=== PATIENT | female | born 1945 | race Caucasian/White ===

== ENCOUNTER 2017-01-12 08:21 | Day surgery (SDC) | payer MEDICARE, BC ==
[~2017-01-12 08:21] MED LIST: Cefuroxime 10 MG/ML SYRINGE EYELF SCH; Lidocaine 1% PF 2 ML SDV INJECT SCH; Pilocarpine 4% Ophth Soln 15 ML Bot EYELF SCH
[2017-01-12] MEDS: Ofloxacin 0.3% Ophth Soln 5 ML Bottle EYELF SCH ×3 (09:23→11:11)
[2017-01-12] MEDS: Brimonidine 0.2% Ophth Soln 5 ML Bottle EYELF SCH ×3 (09:28→11:11)
[2017-01-12] MEDS: Phenylephrine 2.5% Ophth Soln 2 ML Bot EYELF SCH ×5 (09:33→10:50)
--- NOTE | 2017-01-12 09:46 | PCM.PREANE ---
Preanesthetic Assessment - Procedure Proposed Procedure: Left eye cataract extraction with IOL - Anesthesia/Transfusion/Family Hx Anesthesia History: Prior Anesthesia Without Reaction Family History of Anesthesia Reaction: No Transfusion History: Prior Transfusion Without Reaction Intubation History: Unknown - Review of Systems General: No Symptoms Pulmonary: No Symptoms (asthma, usesd daily inhaler ), Other Cardiovascular: Other (HTN, HLD) Neurological: No Symptoms Other: Reports: Easy Bruising, Thyroid Problems - Physical Assessment NPO Status Date: 01/11/17 NPO Status Time: 19:00 O2 Sat by Pulse Oximetry: 98 Respiratory Rate: 18 Vital Signs: Last Vital Signs Temp 36.6 C 01/12/17 09:20 Pulse 89 01/12/17 09:20 Resp 18 01/12/17 09:20 BP 209/73 H 01/12/17 09:20 Pulse Ox 98 01/12/17 09:20 Height: 1.6 m Weight: 116.573 kg ASA Class: 3 Mental Status: Alert & Oriented x3 Airway Class: Mallampati = 3 Dentition: Reports: Normal Dentition Thyro-Mental Finger Breadths: 3 Mouth Opening Finger Breadths: 3 ROM/Head Extension: Full Lungs: Clear to auscultation, Normal respiratory effort Cardiovascular: Regular Rate, Regular Rhythm - Allergies Allergies/Adverse Reactions: Allergies Allergy/AdvReac Type Severity Reaction Status Date / Time Sulfa (Sulfonamide Allergy Rash Verified 01/11/17 15:57 Antibiotics) - Blood Blood Available: No - Anesthesia Plan Pre-Op Medication Ordered: None - Acknowledgements Anesthesia Type Planned: MAC Pt an Appropriate Candidate for the Planned Anesthesia: Yes Alternatives and Risks of Anesthesia Discussed w Pt/Guardian: Yes Pt/Guardian Understands and Agrees with Anesthesia Plan: Yes PreAnesthesia Questionnaire HEENT History: Reports: Impaired Vision Cardiovascular History: Reports: High Cholesterol, Hypertension Respiratory History: Reports: Asthma, Sleep Apnea Gastrointestinal History: Reports: GERD, Other (See Below) Other Gastrointestinal History: gluten intolerance which leads to occasional diarrhea Genitourinary History: Reports: Other (See Below) Other Genitourinary History: occasional UTI 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: Endocrine/Metabolic History: Reports: Hypothyroidism Other Endocrine/Metabolic History: BMI 45 - Infectious Disease History Infectious Disease History: Reports: Chicken Pox, Measles, Mumps - Past Surgical History HEENT Surgical History: Reports: Tonsillectomy, Other (See Below) GI Surgical History: Reports: Appendectomy, Other (See Below) Musculoskeletal Surgical History: Reports: Knee Replacement - SUBSTANCE USE Smoking Status *Q: Never Smoker Second Hand Smoke Exposure: No Days Per Week of Alcohol Use: 0 Number of Drinks Per Day: 0 Total Drinks Per Week: 0 Recreational Drug Use History: No - HOME MEDS Home Medications: Home Meds Budesonide/Formoterol [Symbicort 160-4.5 MCG] 2 puff INH BEDTIME 01/01/15 [ History] Fluticasone Propionate [Flonase] 1 spray GIANLUCA DAILY 01/01/15 [History] Levothyroxine [Synthroid] 50 mcg PO DAILY 01/01/15 [History] Meloxicam 15 mg PO DAILY 01/01/15 [History] Omeprazole [Prilosec] 40 mg PO DAILY 01/01/15 [History] Pravastatin [Pravachol] 20 mg PO BEDTIME 01/01/15 [History] Triamterene/Hydrochlorothiazid [Triamterene-HCTZ 37.5-25 MG] 1 cap PO DAILY [History] Losartan [Cozaar] 50 mg PO DAILY 01/11/17 [History] - CURRENT (IN HOUSE) MEDS Current Meds: Current Medications Brimonidine Tartrate (Alphagan 0.2% Ophth Soln) 0 ml EYELF ASDIRECTED ZAHEER Stop: 01/12/17 18:00 Last Admin: 01/12/17 09:28 Dose: 1 drop Cefuroxime Sodium (Zinacef) 0 mg EYELF ASDIRECTED ZAHEER Stop: 01/12/17 18:00 Lidocaine HCl (Xylocaine-Mpf 1%) 10 ml INJECT ASDIRECTED ZAHEER Stop: 01/12/17 18:00 Ofloxacin (Ocuflox 0.3% Ophth Soln) 0 ml EYELF ASDIRECTED ZAHEER Stop: 01/12/17 18:00 Last Admin: 01/12/17 09:23 Dose: 1 drop Phenylephrine HCl (Van-Synephrine 2.5% Ophth Soln) 0 ml EYELF ASDIRECTED ZAHEER Stop: 01/12/17 18:00 Last Admin: 01/12/17 09:33 Dose: 1 drop Pilocarpine HCl (Pilocar 4% Ophth Soln) 0 ml EYELF ASDIRECTED ZAHEER Stop: 01/12/17 18:00 Tetracaine HCl (Tetracaine 0.5% Steri-Unit Dana) 0 ml EYELF ASDIRECTED ZAHEER Stop: 01/12/17 18:00 Tropicamide (Mydriacyl 1% Oph Soln) 0 ml EYELF ASDIRECTED ZAHEER Stop: 01/12/17 18:00 Last Admin: 01/12/17 09:38 Dose: 1 drop
[2017-01-12] MEDS: Tetracaine HCl/PF 0.5% 4 ML Bottle EYELF SCH ×2 (10:36→10:58)
--- NOTE | 2017-01-12 11:20 | PCM48HPAN ---
Post Anesthesia Note - EVALUATION WITHIN 48HRS OF ANESTHETIC Vital Signs in Normal Range: Yes Patient Participated in Evaluation: Yes Respiratory Function Stable: Yes Airway Patent: Yes Cardiovascular Function Stable: Yes Hydration Status Stable: Yes Pain Control Satisfactory: Yes Nausea and Vomiting Control Satisfactory: Yes Mental Status Recovered: Yes
[2017-01-12 11:32] VITALS: BP 182/83
== END 2017-01-12 11:30 | disposition home or self-care (01) ==
LOC: JD.SDS 08:21
PROVIDERS: ATTEND Ophthalmology
DX: H26.9 Unspecified cataract (principal); I10 Essential (primary) hypertension; J45.909 Unspecified asthma, uncomplicated; E03.9 Hypothyroidism, unspecified; N28.9 Disorder of kidney and ureter, unspecified; Z90.49 Acquired absence of other specified parts of digestive tract; Z90.710 Acquired absence of both cervix and uterus; Z96.659 Presence of unspecified artificial knee joint; Z79.899 Other long term (current) drug therapy
CPT/HCPCS: 66984; A9270; J0697; C1780

== ENCOUNTER 2017-09-11 10:34 | Emergency (ER) | payer MEDICARE, BC ==
[2017-09-11] MEDS ORDERED: Sodium Chloride 0.9% 10 ML Syringe FLUSH PRN ×2 (11:27→12:39)
--- NOTE | 2017-09-11 11:36 | EDM.PDOC ---
ED HPI GENERAL MEDICAL PROBLEM - General Chief Complaint: Respiratory Problem Stated Complaint: SOB Time Seen by Provider: 09/11/17 11:05 Source of Information: Reports: Patient History Limitations: Reports: No Limitations - History of Present Illness INITIAL COMMENTS - FREE TEXT/NARRATIVE: Patient is 71-year-old female with a history of asthma who presents to the ED complaining of shortness of breath for the past 2 weeks. Patient states it has been an ongoing issue. She is taking multiple inhalers for asthma with no significant improvements. As of recent she was seen by her PCP for left-sided abdominal pain and started on 2 antibiotics for diverticulitis. States that symptoms are getting better but the shortness of breath has not improved. States with walking across her room she gets severely short of breath decreased with rest. This is a significant change from previous episodes. She not able to walk as far as she used to. She does get lightheaded at times and feels that she is going to pass out. She does use a CPAP machine at hs and notes occasionally experiencing increasing shortness of breath with laying flat. Denies any increase weight or edema to her lower extremities. States the edema to her legs is chronic. Today she states symptoms are not as bad as yesterday. Has a dry hacky cough and feels dry. Otherwise denies any viral upper respiratory symptoms. She does a history of DVT 40 years ago during . Chest discomfort does not radiate. Current history includes hypertension, hypothyroidism, GERD, asthma, diverticulosis, and chest pain. Current medications see list. Chest Pain Score (Numeric/FACES): 2 - Related Data Allergies Allergy/AdvReac Type Severity Reaction Status Date / Time Sulfa (Sulfonamide Allergy Rash Verified 09/11/17 10:48 Antibiotics) Home Meds: Home Meds Budesonide/Formoterol [Symbicort 160-4.5 MCG] 2 puff INH BEDTIME 01/01/15 [ History] Fluticasone Propionate [Flonase] 1 spray GIANLUCA DAILY 01/01/15 [History] Levothyroxine [Synthroid] 50 mcg PO DAILY 01/01/15 [History] Meloxicam 15 mg PO DAILY 01/01/15 [History] Omeprazole [Prilosec] 40 mg PO DAILY 01/01/15 [History] Pravastatin [Pravachol] 20 mg PO BEDTIME 01/01/15 [History] Triamterene/Hydrochlorothiazid [Triamterene-HCTZ 37.5-25 MG] 1 cap PO DAILY [History] Losartan [Cozaar] 50 mg PO DAILY 01/11/17 [History] Albuterol Sulfate 2.5 mg IH Q4HR PRN 09/11/17 [History] Aspirin [Halfprin] 81 mg PO DAILY 09/11/17 [History] Estrogens, Conjugated [Premarin Vaginal Crm] 1 applic VAG ASDIRECTED PRN [History] Past Medical History HEENT History: Reports: Impaired Vision Cardiovascular History: Reports: High Cholesterol, Hypertension Respiratory History: Reports: Asthma, Sleep Apnea Gastrointestinal History: Reports: GERD, Other (See Below) Other Gastrointestinal History: gluten intolerance which leads to occasional diarrhea Genitourinary History: Reports: Other (See Below) Other 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: Endocrine/Metabolic History: Reports: Hypothyroidism Other Endocrine/Metabolic History: BMI 45 - Infectious Disease History Infectious Disease History: Reports: Chicken Pox, Measles, Mumps - Past Surgical History HEENT Surgical History: Reports: Tonsillectomy, Other (See Below) GI Surgical History: Reports: Appendectomy, Other (See Below) Musculoskeletal Surgical History: Reports: Knee Replacement Social & Family History - Tobacco Use Smoking Status *Q: Unknown Ever Smoked Second Hand Smoke Exposure: No - Caffeine Use Caffeine Use: Reports: Coffee - Alcohol Use Days Per Week of Alcohol Use: 0 Number of Drinks Per Day: 0 Total Drinks Per Week: 0 - Recreational Drug Use Recreational Drug Use: No Drug Use in Last 12 Months: No ED ROS GENERAL - Review of Systems Review Of Systems: See Below Constitutional: Reports: Malaise, Weakness, Fatigue. Denies: Fever, Chills, Decreased Appetite Respiratory: Reports: Shortness of Breath, Cough. Denies: Hemoptysis Cardiovascular: Reports: Dyspnea on Exertion, Orthopnea. Denies: Lightheadedness GI/Abdominal: Reports: No Symptoms Musculoskeletal: Reports: No Symptoms ED EXAM, GENERAL - Physical Exam Exam: See Below Exam Limited By: No Limitations General Appearance: Alert, WD/WN, Anxious, Mild Distress Ears: Hearing Grossly Normal Nose: Normal Inspection Throat/Mouth: Normal Inspection, Normal Oropharynx, Normal Voice, No Airway Compromise Head: Atraumatic, Normocephalic Neck: Normal Inspection, Supple Respiratory/Chest: No Respiratory Distress, Lungs Clear, Normal Breath Sounds, No Accessory Muscle Use, Chest Non-Tender Cardiovascular: Normal Peripheral Pulses, Regular Rate, Rhythm Peripheral Pulses: 2+: Posterior Tibial (L), Posterior Tibial (R) GI/Abdominal: Normal Bowel Sounds, Soft, Non-Tender, No Organomegaly, No Distention Back Exam: Normal Inspection Extremities: Non-Tender, Pedal Edema (trace to 1+ lower legs bilaterally. ), Other. No: Leg Pain Neurological: Alert, Oriented, CN II-XII Intact, Normal Cognition, No Motor/ Sensory Deficits Psychiatric: Normal Affect, Normal Mood Skin Exam: Warm, Dry, Intact, Normal Color Course - Vital Signs Last Recorded V/S: Last Vital Signs Temp 97.2 F 09/11/17 14:45 Pulse 100 09/11/17 14:45 Resp 19 09/11/17 14:45 BP 159/78 H 09/11/17 14:45 Pulse Ox 94 L 09/11/17 14:45 - Orders/Labs/Meds Labs: Laboratory Tests 09/11/17 09/11/17 09/11/17 Range/Units 11:35 11:35 11:35 WBC 7.08 (3.98-10.04) K/mm3 RBC 4.13 (3.98-5.22) M/mm3 Hgb 13.1 (11.2-15.7) gm/L Hct 40.3 (34.1-44.9) % MCV 97.6 H (79.4-94.8) fl MCH 31.7 (25.6-32.2) pg MCHC 32.5 (32.2-35.5) g/dl RDW Std Deviation 44.3 (36.4-46.3) fL Plt Count 216 (182-369) K/mm3 MPV 8.6 L (9.4-12.3) fl Neut % (Auto) 70.9 (34.0-71.1) % Lymph % (Auto) 18.5 L (19.3-51.7) % [place] % (Auto) 8.5 (4.7-12.5) % Eos % (Auto) 1.4 (0.7-5.8) Baso % (Auto) 0.1 (0.1-1.2) % Neut # (Auto) 5.02 (1.56-6.13) K/mm3 Lymph # (Auto) 1.31 (1.18-3.74) K/mm3 [place] # (Auto) 0.60 H (0.24-0.36) K/mm3 Eos # (Auto) 0.10 (0.04-0.36) K/mm3 Baso # (Auto) 0.01 (0.01-0.08) K/mm3 PT (8.0-13.0) SECONDS INR APTT (22-36) SECONDS D-Dimer, Quantitative (0.19-0.59) mg/L Sodium 138 (136-145) mEq/L Potassium 4.5 (3.5-5.1) mEq/L Chloride 103 (98-107) mEq/L Carbon Dioxide 26 (21-32) mEq/L Anion Gap 13.5 (5-15) BUN 27 H (7-18) mg/dL Creatinine 1.3 H (0.55-1.02) mg/dL Est Cr Clr Drug Dosing 33.31 mL/min Estimated GFR (MDRD) 40 (>60) mL/min BUN/Creatinine Ratio 20.8 H (14-18) Glucose 174 H (80-115) mg/dL Calcium 9.2 (8.5-10.1) mg/dL Total Bilirubin 0.3 (0.2-1.0) mg/dL AST 17 (15-37) U/L ALT 33 (14-59) U/L Alkaline Phosphatase 78 (46-116) U/L CK-MB (CK-2) (0-3.6) ng/ml Troponin I 0.300 H* (0.00-0.056) ng/mL C-Reactive Protein 2.1 H* (<1.0) mg/dL NT-Pro-B Natriuret Pep 4135 H (0-125) pg/mL Total Protein 6.7 (6.4-8.2) g/dl Albumin 3.3 L (3.4-5.0) g/dl Globulin 3.4 gm/dL Albumin/Globulin Ratio 1.0 (1-2) 09/11/17 09/11/17 09/11/17 Range/Units 11:35 11:35 11:35 WBC (3.98-10.04) K/mm3 RBC (3.98-5.22) M/mm3 Hgb (11.2-15.7) gm/L Hct (34.1-44.9) % MCV (79.4-94.8) fl MCH (25.6-32.2) pg MCHC (32.2-35.5) g/dl RDW Std Deviation (36.4-46.3) fL Plt Count (182-369) K/mm3 MPV (9.4-12.3) fl Neut % (Auto) (34.0-71.1) % Lymph % (Auto) (19.3-51.7) % [place] % (Auto) (4.7-12.5) % Eos % (Auto) (0.7-5.8) Baso % (Auto) (0.1-1.2) % Neut # (Auto) (1.56-6.13) K/mm3 Lymph # (Auto) (1.18-3.74) K/mm3 [place] # (Auto) (0.24-0.36) K/mm3 Eos # (Auto) (0.04-0.36) K/mm3 Baso # (Auto) (0.01-0.08) K/mm3 PT (8.0-13.0) SECONDS INR APTT 25 (22-36) SECONDS D-Dimer, Quantitative 4.70 H (0.19-0.59) mg/L Sodium (136-145) mEq/L Potassium (3.5-5.1) mEq/L Chloride (98-107) mEq/L Carbon Dioxide (21-32) mEq/L Anion Gap (5-15) BUN (7-18) mg/dL Creatinine (0.55-1.02) mg/dL Est Cr Clr Drug Dosing mL/min Estimated GFR (MDRD) (>60) mL/min BUN/Creatinine Ratio (14-18) Glucose (80-115) mg/dL Calcium (8.5-10.1) mg/dL Total Bilirubin (0.2-1.0) mg/dL AST (15-37) U/L ALT (14-59) U/L Alkaline Phosphatase (46-116) U/L CK-MB (CK-2) 2.4 (0-3.6) ng/ml Troponin I (0.00-0.056) ng/mL C-Reactive Protein (<1.0) mg/dL NT-Pro-B Natriuret Pep (0-125) pg/mL Total Protein (6.4-8.2) g/dl Albumin (3.4-5.0) g/dl Globulin gm/dL Albumin/Globulin Ratio (1-2) 09/11/17 09/11/17 Range/Units 11:35 13:55 WBC (3.98-10.04) K/mm3 RBC (3.98-5.22) M/mm3 Hgb (11.2-15.7) gm/L Hct (34.1-44.9) % MCV (79.4-94.8) fl MCH (25.6-32.2) pg MCHC (32.2-35.5) g/dl RDW Std Deviation (36.4-46.3) fL Plt Count (182-369) K/mm3 MPV (9.4-12.3) fl Neut % (Auto) (34.0-71.1) % Lymph % (Auto) (19.3-51.7) % [place] % (Auto) (4.7-12.5) % Eos % (Auto) (0.7-5.8) Baso % (Auto) (0.1-1.2) % Neut # (Auto) (1.56-6.13) K/mm3 Lymph # (Auto) (1.18-3.74) K/mm3 [place] # (Auto) (0.24-0.36) K/mm3 Eos # (Auto) (0.04-0.36) K/mm3 Baso # (Auto) (0.01-0.08) K/mm3 PT 11.7 (8.0-13.0) SECONDS INR 1.07 APTT (22-36) SECONDS D-Dimer, Quantitative (0.19-0.59) mg/L Sodium (136-145) mEq/L Potassium (3.5-5.1) mEq/L Chloride (98-107) mEq/L Carbon Dioxide (21-32) mEq/L Anion Gap (5-15) BUN (7-18) mg/dL Creatinine (0.55-1.02) mg/dL Est Cr Clr Drug Dosing mL/min Estimated GFR (MDRD) (>60) mL/min BUN/Creatinine Ratio (14-18) Glucose (80-115) mg/dL Calcium (8.5-10.1) mg/dL Total Bilirubin (0.2-1.0) mg/dL AST (15-37) U/L ALT (14-59) U/L Alkaline Phosphatase (46-116) U/L CK-MB (CK-2) (0-3.6) ng/ml Troponin I 0.285 H* (0.00-0.056) ng/mL C-Reactive Protein (<1.0) mg/dL NT-Pro-B Natriuret Pep (0-125) pg/mL Total Protein (6.4-8.2) g/dl Albumin (3.4-5.0) g/dl Globulin gm/dL Albumin/Globulin Ratio (1-2) Meds: Medications Discontinued Medications Generic Name Dose Route Start Last Admin Trade Name Freq PRN Reason Stop Dose Admin Aspirin 324 mg 09/11/17 12:26 09/11/17 12:33 Aspirin PO 09/11/17 12:27 324 mg ONETIME ONE Administration Enoxaparin Sodium 115 mg 09/11/17 14:04 09/11/17 14:24 Lovenox SUBCUT 09/11/17 14:05 115 mg ONETIME ONE Administration Sodium Chloride 100 mls @ 65 mls/hr 09/11/17 12:45 09/11/17 13:10 Normal Saline IV 65 mls/hr ASDIRECTED ZAHEER Administration Iopamidol 100 ml 09/11/17 12:39 09/11/17 13:10 Isovue-370 (76%) IVPUSH 09/11/17 12:40 100 ml ONETIME ONE Administration Sodium Chloride 10 ml 09/11/17 11:27 09/11/17 11:35 Saline Flush FLUSH 10 ml ASDIRECTED PRN Administration Keep Vein Open Sodium Chloride 10 ml 09/11/17 12:39 09/11/17 13:11 Saline Flush FLUSH 10 ml ONETIME PRN Administration IV FLUSH - Re-Assessments/Exams Free Text/Narrative Re-Assessment/Exam: IV established. Initial labs and studies will include CBC, chem 14, CRP, protein BMP, troponin, chest x-ray two-view, EKG, and also d-dimer. Stress test obtained July 30, 2016 impression: Altered graphically negative Lexiscan stress test for ischemia. Normal blood pressure response to exercise. Nuclear imaging results pending will be reported separately patient per radiologist. Cardiolite cardiac exam impression: No abnormality is identified on Cardiolite portion of cardiac stress test. Echocardiogram obtained February 18, 2016 summary: Left ventricular ejection fraction by visual estimation is 60-65%. Normal right ventricular systolic function. There is mild aortic valve sclerosis without stenosis. No evidence of mitral valve regurgitation. Trace tricuspid valve regurgitation. No regional wall motion abnormalities. PFT obtained 12/11/13: There is minimal obstructing lung defect. Because expiratory time to FVC is less than 5 seconds the degree of obstruction may be other estimated. The airway obstruction is confirmed by decrease in flow rate at peak flow and flow at 25%, 50%, and 75% of flow volume curb. On the basis of this study more detail pulmonary function testing may be useful if clinically indicated. FEF 25-75 change by 13%. This is interpreted as in the significant response to bronchodilator. EKG: Sinus Rhythm rate of [address] changes. Labs reviewed: CBC essentially normal. Creatinine 1.3 when necessary is 27, glucose 174, troponin quite elevated 0.300, CRP 2.1, proBNP is 4135, and d- dimer is 4.70. Will order CKMB. Suspect patient may have had a FL over the past two weeks. D-Dimer elevated thus ordered CT of the chest PE protocol. 1225 Chest x-ray reviewed with Dr. Pichardo No cardiomegaly. No increased pulmonary vascularization. No acute parenchymal findings noted. Final interpretation is pending. CKMB WNL. 09/11/17 13:39 CT chest angiogram impression: Fairly extensive pulmonary emboli on both sides the chest as noted above. Other incidental findings. Patient admits to having pain and swelling to the inner aspect of the left knee few weeks ago with onset of symptoms. Swelling and pain have dissipated but SOB remains. Concerning for DVT. Will not obtain ultrasound. Will delay transport. 09/11/17 13:40 Discussed findings with patient and daughter.I suggested transport to [facility] for consultation with [facility], Cardiology, and/or pulmonology. Family insisted on trying to be admitted to [place]. Spoke with Dr. Huffman suggested transfer to [place] for the above consultations. Family agrees with plan. [id number] [facility]. Dr. Medina has accepted. Agreed with Lovenox 1mg/kg. Has been ordered. Ambulance has been notified. All transfer paperwork completed. 2nd troponin trending downward, 0.285. Departure - Departure Time of Disposition: 13:51 Disposition: DC/Tfer to Acute Hospital 02 Clinical Impression: NSTEMI (non-ST elevated myocardial infarction) Pulmonary embolism Qualifiers: Pulmonary embolism type: other Chronicity: acute Acute cor pulmonale presence: without acute cor pulmonale Qualified Code(s): I26.99 - Other pulmonary embolism without acute cor pulmonale - Discharge Information Referrals: Shagufta Harvey PA-C [Primary Care Provider] - Forms: ED Department Discharge
[2017-09-11] MEDS ORDERED: Aspirin 81 MG Tab.Chew PO ONE (12:26)
[2017-09-11] MEDS ORDERED: Iopamidol 755 Mg/ML 100 ML Bottle IVPUSH ONE (12:39)
[2017-09-11] MEDS ORDERED: Sodium Chloride 0.9% 100 ML IV SCH (12:45)
--- NOTE | 2017-09-11 13:30 | CT ---
CT chest Technique: Multiple axial sections through the chest are obtained. Intravenous contrast was utilized. Study has been performed as a pulmonary angiogram protocol. Findings: Pulmonary emboli are seen within the distal main pulmonary arteries on both sides (worse on the left side). Additional emboli extends into the segmental branches of the right lower lung as well as within the left upper lung and left lower segmental arteries. Additional sub-segmental pulmonary emboli are seen within the right lower lung. Mediastinum and hilar regions show no adenopathy or mass. No pericardial thickening is seen. Small portion of the visualized upper abdominal structures are within normal limits. Lungs are clear without acute pulmonary densities. Bone window settings were reviewed showing scattered degenerative endplate spurring within the spine. No findings of right heart dysfunction is seen at this time. Impression: 1. Fairly extensive pulmonary emboli on both sides of the chest as noted above. 2. Other incidental findings. Diagnostic code #5
[2017-09-11] MEDS ORDERED: Enoxaparin 120 MG/0.8 ML Syringe SUBCUT ONE (14:04)
--- NOTE | 2017-09-11 15:37 | CR ---
Chest: Two views of the chest were obtained. Comparison: Prior chest x-ray of 07/23/16. Heart size at the upper limits of normal. Tortuous thoracic aorta is seen. Lungs are clear with no acute infiltrates. Slight degenerative change is seen within the spine. Mild scoliosis is present within the spine. Impression: 1. Incidental findings. Nothing acute is seen. Diagnostic code #2
[2017-09-11 16:00] VITALS: BP 159/78
== END 2017-09-11 14:45 ==
LOC: JD.ED 10:34
DX: I21.4 Non-ST elevation (NSTEMI) myocardial infarction (principal); I26.99 Other pulmonary embolism without acute cor pulmonale; I10 Essential (primary) hypertension; E03.9 Hypothyroidism, unspecified; E78.00 Pure hypercholesterolemia, unspecified; J45.909 Unspecified asthma, uncomplicated; Z88.2 Allergy status to sulfonamides; Z79.899 Other long term (current) drug therapy; Z79.82 Long term (current) use of aspirin
CPT/HCPCS: 36415; 71046; 71275; 80053; 82553; 83880; 84484; 85025; 85379; 85610; 85730; 86140; 93005; 99285; A9270; J1650; J7030; J7050; Q9967; 96372; 99284

== ENCOUNTER 2018-03-14 19:18 | Emergency (ER) | payer MEDICARE, BC ==
--- NOTE | 2018-03-14 19:52 | EDM.PDOC ---
ED HPI GENERAL MEDICAL PROBLEM - General Chief Complaint: Head Injury Stated Complaint: FELL HIT HEAD ON ELAQUIST TOLD TO COME IN Time Seen by Provider: 03/14/18 19:34 Source of Information: Reports: Patient, Family (Son) History Limitations: Reports: No Limitations - History of Present Illness INITIAL COMMENTS - FREE TEXT/NARRATIVE: The patient states that she was helping to move a toilet, walking backwards, when she tripped, falling, striking the back of her head on some steps, around 18:30 this evening. There was no loss of consciousness, and the patient did not headache. She states that she has a couple of "twinges", otherwise, she is uninjured. The patient presents to the emergency department, because she is on Eliquis for treatment of a pulmonary embolus that developed in August of this year. She was told that if she ever hit her head while on Eliquis, she needed to go to the emergency room. The patient's PCP is Shagufta Harvey. left elbow Pain Score (Numeric/FACES): 4 - Related Data Allergies Allergy/AdvReac Type Severity Reaction Status Date / Time mold Allergy Difficulty Verified 03/14/18 19:30 Breathing pollen extracts Allergy Difficulty Verified 03/14/18 19:30 Breathing Sulfa (Sulfonamide Allergy Rash Verified 03/14/18 19:30 Antibiotics) Home Meds: Home Meds Budesonide/Formoterol [Symbicort 160-4.5 MCG] 2 puff INH BEDTIME 01/01/15 [ History] Fluticasone Propionate [Flonase] 1 spray GIANLUCA DAILY 01/01/15 [History] Levothyroxine [Synthroid] 50 mcg PO DAILY 01/01/15 [History] Omeprazole [Prilosec] 40 mg PO DAILY 01/01/15 [History] Pravastatin [Pravachol] 20 mg PO BEDTIME 01/01/15 [History] Triamterene/Hydrochlorothiazid [Triamterene-HCTZ 37.5-25 MG] 1 cap PO DAILY [History] Losartan [Cozaar] 50 mg PO DAILY 01/11/17 [History] Albuterol Sulfate 2.5 mg IH Q4HR PRN 09/11/17 [History] Aspirin [Halfprin] 81 mg PO DAILY 09/11/17 [History] Estrogens, Conjugated [Premarin Vaginal Crm] 1 applic VAG ASDIRECTED PRN [History] Apixaban [Eliquis] 5 mg PO BID 03/14/18 [History] DULoxetine [Cymbalta] 30 mg PO DAILY 03/14/18 [History] Loratadine 10 mg PO DAILY 03/14/18 [History] Past Medical History HEENT History: Reports: Impaired Vision Cardiovascular History: Reports: High Cholesterol, Hypertension Respiratory History: Reports: Asthma, PE (Aug 2017), Sleep Apnea (on nightly AutoPAP) Gastrointestinal History: Reports: GERD ATHLETIC SCOUT History: Reports: Psychiatric History: Reports: Depression Endocrine/Metabolic History: Reports: Hypothyroidism, Obesity/BMI 30+ - Infectious Disease History Infectious Disease History: Reports: Chicken Pox, Measles, Mumps - Past Surgical History HEENT Surgical History: Reports: Tonsillectomy GI Surgical History: Reports: Appendectomy, Hernia, Abdominal (umbilical) Female Surgical History: Reports: Hysterectomy, Salpingo-Oophorectomy Musculoskeletal Surgical History: Reports: Knee Replacement (bilateral) Social & Family History - Family History Family Medical History: Noncontributory - Tobacco Use Smoking Status *Q: Never Smoker - Caffeine Use Caffeine Use: Reports: Coffee, Tea - Alcohol Use Alcohol Use History: Yes Alcohol Use Frequency: Rarely - Recreational Drug Use Recreational Drug Use: No - Living Situation & Occupation Living situation: Reports: , Alone Occupation: Retired ED ROS GENERAL - Review of Systems Review Of Systems: ROS reveals no pertinent complaints other than HPI. ED EXAM, HEAD INJURY - Physical Exam Exam: See Below Exam Limited By: No Limitations General Appearance: Alert, WD/WN, No Apparent Distress Head: Atraumatic, Normocephalic. No: Scalp Lacerations, Scalp Swelling, Scalp Abrasions, Scalp Ecchymosis, Scalp Hematoma, Scalp Tenderness Eyes: Bilateral Eye: EOMI, Normal Inspection, PERRL Ears: Normal External Exam, Normal Canal, Hearing Grossly Normal, Normal TMs Nose: Normal Inspection, Normal Mucousa, No Blood Throat/Mouth: Normal Inspection, Normal Lips, Normal Teeth, Normal Gums, Normal Oropharynx, Normal Voice, No Airway Compromise Neck: Non-Tender, Full Range of Motion, Normal Alignment, Normal Inspection Respiratory: No Respiratory Distress, Lungs Clear, Normal Breath Sounds, No Accessory Muscle Use Cardiovascular: Normal Peripheral Pulses, Regular Rate, Rhythm, No Gallop, No JVD, No Murmur, No Rub GI/Abdominal Exam: Normal Bowel Sounds, Soft, Non-Tender, No Organomegaly, No Distention, No Abnormal Bruit, No Mass, Other (Obese) (Female) Exam: Deferred Rectal (Female) Exam: Deferred Back Exam: Full Range of Motion, Normal Inspection, NT Extremities: Normal Inspection, Normal Range of Motion, No Pedal Edema, Normal Capillary Refill Neurologic: chief order dispatcher II-XII nml As Tested, No Motor/Sensory Deficits, Alert, Oriented x 3 Skin: Normal Color, Warm/Dry Course - Vital Signs Last Recorded V/S: Last Vital Signs Temp 36.5 C 03/14/18 19:26 Pulse 81 03/14/18 19:26 Resp 18 03/14/18 19:26 BP 181/79 H 03/14/18 19:26 Pulse Ox 94 L 03/14/18 19:26 - Re-Assessments/Exams Free Text/Narrative Re-Assessment/Exam: 03/14/18 19:47 While it is true that the patient is on Eliquis, and Eliquis makes it difficult for the body to stop bleeding if there is a source of bleeding, Eliquis does not cause one to bleed in the first place. In this patient's situation, the mechanism of injury would not be one that one would expect to cause an intracranial hemorrhage. The blow to the back of her head was so minor as to not leave so much as a bump or an abrasion. Additionally , the patient does not have a headache; virtually all traumatic intracranial hemorrhages cause either a headache or unconsciousness. Lastly, her neurologic exam is entirely normal. The patient, therefore, does not need a CT scan of the head. This was explained to the patient and her son, who are in complete agreement. I will discharge her home. Departure - Departure Time of Disposition: 19:50 Disposition: Home, Self-Care 01 Condition: Good Clinical Impression: Fall from other slipping, tripping, or stumbling - Discharge Information *PRESCRIPTION DRUG MONITORING PROGRAM REVIEWED*: Not Applicable *COPY OF PRESCRIPTION DRUG MONITORING REPORT IN PATIENT BOWEN: Not Applicable Referrals: Shagufta Harvey PA-C [Primary Care Provider] - Additional Instructions: You were seen in the emergency room after tripping, falling backwards, and hitting the back of your head, while on the blood thinner Eliquis. You have no headache, and on examination, no physical injury was found, and your neurologic examination was completely normal. Under these circumstances, a CT scan of your head was not indicated. Continue to take your usual medications as prescribed. If any other problems, please do not hesitate to return to the ER.
[2018-03-14 20:02] VITALS: BP 156/79
== END 2018-03-14 20:00 | disposition home or self-care (01) ==
LOC: JD.ED 19:18
DX: Z04.3 Encounter for examination and observation following other accident (principal); E78.00 Pure hypercholesterolemia, unspecified; I10 Essential (primary) hypertension; J45.909 Unspecified asthma, uncomplicated; E03.9 Hypothyroidism, unspecified; Z79.899 Other long term (current) drug therapy; Z79.82 Long term (current) use of aspirin; W01.10XA Fall on same level from slipping, tripping and stumbling with subsequent striking against unspecified object, initial encounter
CPT/HCPCS: 99283

== ENCOUNTER 2019-04-22 11:19 | Emergency (ER) | payer MEDICARE, BC ==
[2019-04-22] MEDS ORDERED: Sodium Chloride 0.9% 10 ML Syringe FLUSH PRN (11:25)
[2019-04-22] MEDS ORDERED: HYDROmorphone 0.5 MG/0.5 ML Syringe IVPUSH ONE (11:27)
--- NOTE | 2019-04-22 11:32 | EDM.PDOC ---
ED HPI GENERAL MEDICAL PROBLEM - General Chief Complaint: Trauma Stated Complaint: [facility] Time Seen by Provider: 04/22/19 11:22 Source of Information: Reports: Patient, EMS History Limitations: Reports: No Limitations - History of Present Illness INITIAL COMMENTS - FREE TEXT/NARRATIVE: The patient presents by [facility] for a fall and left elbow injury. The patient was racing her great granddaughter and she tripped on a drain pipe and fell and landed on her left elbow. She says she did not hit her head. She has no neck pain. She has no headache at this time. She has no chest pain, abdominal pain, nausea, vomiting, hip or leg pain. She does have pain to the left elbow and concerns for a dislocation. She is on eliquis for PE. Onset: Sudden Duration: Minutes: Location: Reports: Upper Extremity, Left (elbow) Quality: Reports: Sharp Severity: Severe Improves with: Reports: Immobilization Worsens with: Reports: Movement Associated Symptoms: Reports: No Other Symptoms Left Arm Pain Score (Numeric/FACES): 8 - Related Data Allergies Allergy/AdvReac Type Severity Reaction Status Date / Time mold Allergy Difficulty Verified 04/22/19 11:24 Breathing pollen extracts Allergy Difficulty Verified 04/22/19 11:24 Breathing Sulfa (Sulfonamide Allergy Rash Verified 04/22/19 11:24 Antibiotics) Home Meds: Home Meds Budesonide/Formoterol [Symbicort 160-4.5 MCG] 2 puff INH BEDTIME 01/01/15 [ History] Fluticasone Propionate [Flonase] 1 spray GIANLUCA DAILY 01/01/15 [History] Levothyroxine [Synthroid] 50 mcg PO DAILY 01/01/15 [History] Omeprazole [Prilosec] 40 mg PO DAILY 01/01/15 [History] Pravastatin [Pravachol] 40 mg PO BEDTIME 01/01/15 [History] Losartan [Cozaar] 100 mg PO DAILY 01/11/17 [History] Albuterol Sulfate 2.5 mg IH Q4HR PRN 09/11/17 [History] Apixaban [Eliquis] 5 mg PO BID 03/14/18 [History] Loratadine 0 mg PO DAILY 03/14/18 [History] Calcium Lactate 650 mg PO BID 04/22/19 [History] Fluticasone Propionate [Flovent] 1 spray NASBOTH DAILY 04/22/19 [History] Folic Acid 1 tab PO DAILY 04/22/19 [History] Hydrocodone/Acetaminophen [Hydrocodon-Acetaminophen 5-325] 1 - 2 each PO Q6HR PRN #20 tablet 04/22/19 [Rx] Lutein 1 tab PO DAILY 04/22/19 [History] Montelukast Sodium 10 mg PO DAILY 04/22/19 [History] Multivitamin [Daily Multiple Vitamin] 1 each PO DAILY 04/22/19 [History] amLODIPine Besylate [Amlodipine Besylate] 5 mg PO DAILY 04/22/19 [History] hydroCHLOROthiazide [Hydrochlorothiazide] 1 tab PO DAILY 04/22/19 [History] Past Medical History HEENT History: Reports: Impaired Vision Cardiovascular History: Reports: High Cholesterol, Hypertension Other Cardiovascular History: currently on eliquis for PE Respiratory History: Reports: Asthma, PE (Aug 2017), Sleep Apnea (on nightly AutoPAP) Gastrointestinal History: Reports: GERD Other Gastrointestinal History: gluten intolerance which leads to occasional diarrhea Genitourinary History: Reports: Other (See Below) Other Genitourinary History: occasional UTI 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 History: Reports: Psychiatric History: Reports: Depression Endocrine/Metabolic History: Reports: Hypothyroidism, Obesity/BMI 30+ Other Endocrine/Metabolic History: BMI 45 - Infectious Disease History Infectious Disease History: Reports: Chicken Pox, Measles, Mumps - Past Surgical History HEENT Surgical History: Reports: Tonsillectomy GI Surgical History: Reports: Appendectomy, Hernia, Abdominal (umbilical) Female Surgical History: Reports: Hysterectomy, Salpingo-Oophorectomy Musculoskeletal Surgical History: Reports: Knee Replacement (bilateral) Social & Family History - Family History Family Medical History: Noncontributory - Caffeine Use Caffeine Use: Reports: Coffee, Tea - Living Situation & Occupation Living situation: Reports: , Alone Occupation: Retired Review of Systems - Review of Systems Review Of Systems: See Below Constitutional: Reports: No Symptoms Eyes: Reports: No Symptoms Ears: Reports: No Symptoms Nose: Reports: No Symptoms Respiratory: Reports: No Symptoms Cardiovascular: Reports: No Symptoms GI/Abdominal: Reports: No Symptoms Genitourinary: Reports: No Symptoms Musculoskeletal: Reports: Other (Left elbow pain) ED EXAM, GENERAL - Physical Exam Exam: See Below Exam Limited By: No Limitations General Appearance: Alert, No Apparent Distress Ears: Normal External Exam Nose: Normal Inspection Head: Atraumatic, Normocephalic Neck: Normal Inspection, Supple, Non-Tender Respiratory/Chest: No Respiratory Distress, Lungs Clear, Normal Breath Sounds Cardiovascular: Regular Rate, Rhythm, No Edema, No Murmur GI/Abdominal: Soft, Non-Tender, No Organomegaly, No Mass Back Exam: Normal Inspection Extremities: Other (Left arm is in a sling. Good sensation distally. Pain upon palpation to the left elbow with deformity at the elbow. There is 2 abrasions to the left inner proximal forearm.) ED TRAUMA PROCEDURES - Joint Reduction Site: Other (left elbow) Sedation: Conscious Sedation Pre-Procedure NV Status: Normal Post-Procedure NV Status: Normal Technique: Traction/Counter Traction Number of Attempts: 1 Post-Reduction Imaging: Completely Reduced, Fracture Seen (Seen before the reduction) Joint Reduction Complications: No - Splinting Left Upper Extremity Splint Site: Left elbow Pre-Procedure NV Status: Normal Post-Procedure NV Status: Normal Splint Material: Fiberglass Splint Design: Posterior, Sling Applied & Form Fitted By: Provider Provider Post-Splint Application NV Check: NV Status Normal, Good Position Complications: No Course - Vital Signs Last Recorded V/S: Last Vital Signs Temp Pulse 81 04/22/19 11:24 Resp 16 04/22/19 11:24 BP Pulse Ox 95 04/22/19 11:24 - Orders/Labs/Meds Orders: Active Orders 24 hr Category Date Time Status Cardiac Monitoring [RC] . DIRECTED Care 04/22/19 11:25 Active Oxygen Therapy Adult [Oxygen Therapy, ED] [RC] Care 04/22/19 12:16 Active ASDIRECTED Peripheral IV Care [RC] . DIRECTED Care 04/22/19 11:26 Active Elbow 2V Lt [CR] Stat Exams 04/22/19 13:03 Taken Elbow Min 3V Lt [CR] Stat Exams 04/22/19 11:26 Taken Sodium Chloride 0.9% [Normal Saline] 1,000 ml Med 04/22/19 12:45 Active IV ASDIRECTED Sodium Chloride 0.9% [Saline Flush] Med 04/22/19 11:25 Active 10 ml FLUSH ASDIRECTED PRN DME for Discharge [COMM] Stat Oth 04/22/19 12:59 Ordered Peripheral IV Insertion Adult [OM.PC] Stat Oth 04/22/19 11:25 Ordered Medication Orders Sodium Chloride (Normal Saline) 1,000 mls @ 100 mls/hr IV ASDIRECTED ZAHEER Stop: 04/26/19 12:35 Last Admin: 04/22/19 13:02 Dose: 100 mls/hr Infusion: 04/22/19 13:02 Dose: 100 mls/hr Admin: 04/22/19 12:52 Dose: 100 mls/hr Sodium Chloride (Saline Flush) 10 ml FLUSH ASDIRECTED PRN PRN Reason: Keep Vein Open Last Admin: 04/22/19 12:52 Dose: 10 ml Labs: Laboratory Tests 04/22/19 04/22/19 Range/Units 12:15 12:15 WBC 9.20 (3.98-10.04) K/mm3 RBC 3.85 L (3.98-5.22) M/mm3 Hgb 12.2 (11.2-15.7) gm/dl Hct 37.9 (34.1-44.9) % MCV 98.4 H (79.4-94.8) fl MCH 31.7 (25.6-32.2) pg MCHC 32.2 (32.2-35.5) g/dl RDW Std Deviation 45.0 (36.4-46.3) fL Plt Count 260 (182-369) K/mm3 MPV 8.2 L (9.4-12.3) fl Neut % (Auto) 81.4 H (34.0-71.1) % Lymph % (Auto) 12.0 L (19.3-51.7) % [place] % (Auto) 5.5 (4.7-12.5) % Eos % (Auto) 0.5 L (0.7-5.8) Baso % (Auto) 0.2 (0.1-1.2) % Neut # (Auto) 7.48 H (1.56-6.13) K/mm3 Lymph # (Auto) 1.10 L (1.18-3.74) K/mm3 [place] # (Auto) 0.51 H (0.24-0.36) K/mm3 Eos # (Auto) 0.05 (0.04-0.36) K/mm3 Baso # (Auto) 0.02 (0.01-0.08) K/mm3 Sodium 138 (136-145) mEq/L Potassium 4.3 (3.5-5.1) mEq/L Chloride 102 (98-107) mEq/L Carbon Dioxide 25 (21-32) mEq/L Anion Gap 15.3 H (5-15) BUN 32 H (7-18) mg/dL Creatinine 1.1 H (0.55-1.02) mg/dL Est Cr Clr Drug Dosing 38.24 mL/min Estimated GFR (MDRD) 49 (>60) mL/min BUN/Creatinine Ratio 29.1 H (14-18) Glucose 157 H (83-115) mg/dL Calcium 9.6 (8.5-10.1) mg/dL Total Bilirubin 0.5 (0.2-1.0) mg/dL AST 23 (15-37) U/L ALT 27 (14-59) U/L Alkaline Phosphatase 79 (46-116) U/L Total Protein 6.9 (6.4-8.2) g/dl Albumin 3.7 (3.4-5.0) g/dl Globulin 3.2 gm/dL Albumin/Globulin Ratio 1.2 (1-2) Meds: Medications Generic Name Dose Route Start Last Admin Trade Name Freq PRN Reason Stop Dose Admin Sodium Chloride 1,000 mls @ 100 mls/hr 04/22/19 12:45 04/22/19 13:02 Normal Saline IV 04/26/19 12:35 100 mls/hr ASDIRECTED ZAHEER Administration Sodium Chloride 10 ml 04/22/19 11:25 04/22/19 12:52 Saline Flush FLUSH 10 ml ASDIRECTED PRN Administration Keep Vein Open Discontinued Medications Generic Name Dose Route Start Last Admin Trade Name Freq PRN Reason Stop Dose Admin Fentanyl Confirm 04/22/19 12:24 04/22/19 12:53 Sublimaze Administered 04/22/19 12:25 Not Given Dose 100 mcg .ROUTE .STK-MED ONE Hydromorphone HCl 0.5 mg 04/22/19 11:27 Dilaudid IVPUSH 04/22/19 11:28 ONETIME ONE Sodium Chloride Confirm 04/22/19 12:37 04/22/19 12:52 Normal Saline Administered 04/22/19 12:38 Not Given Dose 1,000 mls @ as directed .ROUTE .STK-MED ONE Lidocaine HCl Confirm 04/22/19 12:43 Xylocaine-Mpf 1% Administered 04/22/19 12:44 Dose 4 mls @ as directed .ROUTE .STK-MED ONE Propofol Confirm 04/22/19 12:43 Diprivan 20 Ml Administered 04/22/19 12:44 Dose 400 mg .ROUTE .STK-MED ONE - Re-Assessments/Exams Free Text/Narrative Re-Assessment/Exam: 04/22/19 11:32 I ordered an IV saline lock, CT of her head and an x-ray of her left elbow. 04/22/19 13:[address] shows nothing acute. Her CBC looks good. Her creatinine was elevated at 1.1. Her glucose is elevated at 157. Her x-ray shows a dislocation at the elbow. It appears to be posterior and lateral. There is a fracture at the radial head. I called Dr De in [place] and he was okay with me reducing it and he wanted a posterior splint on and his clinic will arrange follow up. I had our LEARNING AND DEVELOPMENT ASSOCIATE come in and sedate the patient and I was able to reduce the dislocation. 04/22/19 13:24 The x-rays confirmed reduction and there is a radial head fracture. I put her in a posterior splint and I will have her follow up with Dr De. Departure - Departure Time of Disposition: 13:25 Disposition: Home, Self-Care 01 Condition: Good Clinical Impression: Fall Qualifiers: Encounter type: initial encounter Qualified Code(s): W19.XXXA - Unspecified fall, initial encounter Dislocation, elbow closed Qualifiers: Encounter type: initial encounter Laterality: left Qualified Code(s): S53.105A - Unspecified dislocation of left ulnohumeral joint, initial encounter Abrasion of left forearm Qualifiers: Encounter type: initial encounter Qualified Code(s): S50.812A - Abrasion of left forearm, initial encounter Radial head fracture, closed Qualifiers: Encounter type: initial encounter Fracture alignment: displaced Laterality: left Qualified Code(s): S52.122A - Displaced fracture of head of left radius, initial encounter for closed fracture - Discharge Information *PRESCRIPTION DRUG MONITORING PROGRAM REVIEWED*: No *COPY OF PRESCRIPTION DRUG MONITORING REPORT IN PATIENT BOWEN: No Prescriptions: Hydrocodone/Acetaminophen [Hydrocodon-Acetaminophen 5-325] 1 - 2 each PO Q6HR PRN #20 tablet PRN Reason: Pain Referrals: Shagufta Harvey PA-C [Primary Care Provider] - Gwyn De MD [Ordering Only Provider] - 1 Week Forms: ED Department Discharge Additional Instructions: Ice your elbow for 15 minutes every other hour while awake for 2 days. Try to elevate your elbow as much as you can for 2 days. Take tylenol or motrin for pain. If that does not help take the hydrocodone. Do not drive when taking the hydrocodone. Take a stool softener if taking the hydrocodone. It can constipate you. Someone from Dr De's office at [facility] will call you to set up a time and day for a follow up visit. If you do not hear from someone by Wednesday, call them. Please return if you are worse. - My Orders Last 24 Hours: My Active Orders 04/22/19 11:25 Cardiac Monitoring [RC] . DIRECTED Sodium Chloride 0.9% [Saline Flush] 10 ml FLUSH ASDIRECTED PRN Peripheral IV Insertion Adult [OM.PC] Stat 04/22/19 11:26 Peripheral IV Care [RC] . DIRECTED Elbow Min 3V Lt [CR] Stat 04/22/19 12:16 Oxygen Therapy Adult [Oxygen Therapy, ED] [RC] ASDIRECTED 04/22/19 12:45 Sodium Chloride 0.9% [Normal Saline] 1,000 ml IV ASDIRECTED 04/22/19 12:59 DME for Discharge [COMM] Stat 04/22/19 13:03 Elbow 2V Lt [CR] Stat - Assessment/Plan Last 24 Hours: My Active Orders 04/22/19 11:25 Cardiac Monitoring [RC] . DIRECTED Sodium Chloride 0.9% [Saline Flush] 10 ml FLUSH ASDIRECTED PRN Peripheral IV Insertion Adult [OM.PC] Stat 04/22/19 11:26 Peripheral IV Care [RC] . DIRECTED Elbow Min 3V Lt [CR] Stat 04/22/19 12:16 Oxygen Therapy Adult [Oxygen Therapy, ED] [RC] ASDIRECTED 04/22/19 12:45 Sodium Chloride 0.9% [Normal Saline] 1,000 ml IV ASDIRECTED 04/22/19 12:59 DME for Discharge [COMM] Stat 04/22/19 13:03 Elbow 2V Lt [CR] Stat
--- NOTE | 2019-04-22 11:52 | CT ---
Head CT Technique: Multiple axial sections through the brain were obtained. Intravenous contrast was not utilized. Comparison: Previous MRI brain of 09/02/18. Findings: Ventricles along with basal cisterns and sulci over the convexities are within normal limits for the patient's age. Old lacunar infarct is noted within the right basal ganglia. No other abnormal parenchymal densities are seen. No evidence of intracranial hemorrhage. No midline shift or mass effect is seen. Bone window settings were reviewed which shows hyperostosis internal frontalis which is a normal variant. Visualized mastoid sinuses and paranasal sinuses show nothing acute. No acute calvarial abnormality is appreciated. Impression: 1. Old lacunar infarct within the right basal ganglia. 2. Nothing acute is appreciated on noncontrast head CT study. Diagnostic code #2
[2019-04-22] MEDS ORDERED: fentaNYL 100 MCG/2 ML SDV ONE (12:24)
--- NOTE | 2019-04-22 12:35 | PCM.PREANE ---
Preanesthetic Assessment - Procedure Proposed Procedure: Left elbow dislocation with fracture - Anesthesia/Transfusion/Family Hx Anesthesia History: Prior Anesthesia Without Reaction Family History of Anesthesia Reaction: No Transfusion History: Prior Transfusion Without Reaction Intubation History: Unknown - Review of Systems General: No Symptoms Pulmonary: No Symptoms, Other (asthma) Cardiovascular: No Symptoms, Other (PE 3 years ago) Gastrointestinal: Other (GERD) Neurological: No Symptoms Other: Reports: None - Physical Assessment NPO Status Date: 04/22/19 (toast and tea) NPO Status Time: 08:00 Vital Signs: Last Vital Signs Temp Pulse 81 04/22/19 11:24 Resp 16 04/22/19 11:24 BP Pulse Ox 95 04/22/19 11:24 135/66, 85, 12, 96% on 2L, 98.5 Height: 5 ft 3 in Weight: 113.398 kg ASA Class: 2E Mental Status: Alert & Oriented x3 Dentition: Reports: Normal Dentition ROM/Head Extension: Full Lungs: Clear to Auscultation, Normal Respiratory Effort Cardiovascular: Regular Rate, Regular Rhythm - Allergies Allergies/Adverse Reactions: Allergies Allergy/AdvReac Type Severity Reaction Status Date / Time mold Allergy Difficulty Verified 04/22/19 11:24 Breathing pollen extracts Allergy Difficulty Verified 04/22/19 11:24 Breathing Sulfa (Sulfonamide Allergy Rash Verified 04/22/19 11:24 Antibiotics) - Acknowledgements Anesthesia Type Planned: MAC Pt an Appropriate Candidate for the Planned Anesthesia: Yes Alternatives and Risks of Anesthesia Discussed w Pt/Guardian: Yes Pt/Guardian Understands and Agrees with Anesthesia Plan: Yes PreAnesthesia Questionnaire HEENT History: Reports: Impaired Vision Cardiovascular History: Reports: High Cholesterol, Hypertension Other Cardiovascular History: currently on eliquis for PE Respiratory History: Reports: Asthma, PE, Sleep Apnea Gastrointestinal History: Reports: GERD Other Gastrointestinal History: gluten intolerance which leads to occasional diarrhea Genitourinary History: Reports: Other (See Below) Other Genitourinary History: occasional UTI 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: Psychiatric History: Reports: Depression Endocrine/Metabolic History: Reports: Hypothyroidism, Obesity/BMI 30+ Other Endocrine/Metabolic History: BMI 45 - Infectious Disease History Infectious Disease History: Reports: Chicken Pox, Measles, Mumps - Past Surgical History HEENT Surgical History: Reports: Tonsillectomy GI Surgical History: Reports: Appendectomy, Hernia, Abdominal Female Surgical History: Reports: Hysterectomy, Salpingo-Oophorectomy Musculoskeletal Surgical History: Reports: Knee Replacement - SUBSTANCE USE Smoking Status *Q: Never Smoker Second Hand Smoke Exposure: No Recreational Drug Use History: No - HOME MEDS Home Medications: Home Meds Budesonide/Formoterol [Symbicort 160-4.5 MCG] 2 puff INH BEDTIME 01/01/15 [ History] Fluticasone Propionate [Flonase] 1 spray GIANLUCA DAILY 01/01/15 [History] Levothyroxine [Synthroid] 50 mcg PO DAILY 01/01/15 [History] Omeprazole [Prilosec] 40 mg PO DAILY 01/01/15 [History] Pravastatin [Pravachol] 40 mg PO BEDTIME 01/01/15 [History] Losartan [Cozaar] 100 mg PO DAILY 01/11/17 [History] Albuterol Sulfate 2.5 mg IH Q4HR PRN 09/11/17 [History] Apixaban [Eliquis] 5 mg PO BID 03/14/18 [History] Loratadine 0 mg PO DAILY 03/14/18 [History] Calcium Lactate 650 mg PO BID 04/22/19 [History] Fluticasone Propionate [Flovent] 1 spray NASBOTH DAILY 04/22/19 [History] Folic Acid 1 tab PO DAILY 04/22/19 [History] Lutein 1 tab PO DAILY 04/22/19 [History] Montelukast Sodium 10 mg PO DAILY 04/22/19 [History] Multivitamin [Daily Multiple Vitamin] 1 each PO DAILY 04/22/19 [History] amLODIPine Besylate [Amlodipine Besylate] 5 mg PO DAILY 04/22/19 [History] hydroCHLOROthiazide [Hydrochlorothiazide] 1 tab PO DAILY 04/22/19 [History] - CURRENT (IN HOUSE) MEDS Current Meds: Current Medications Sodium Chloride (Saline Flush) 10 ml FLUSH ASDIRECTED PRN PRN Reason: Keep Vein Open Discontinued Medications Fentanyl (Sublimaze) Confirm Administered Dose 100 mcg .ROUTE .STK-MED ONE Stop: 04/22/19 12:25 Hydromorphone HCl (Dilaudid) 0.5 mg IVPUSH ONETIME ONE Stop: 04/22/19 11:28
[2019-04-22] MEDS ORDERED: Sodium Chloride 0.9% 1,000 ML ONE (12:37)
[2019-04-22] MEDS ORDERED: Lidocaine 1% 4 ML ONE (12:43)
[2019-04-22] MEDS ORDERED: Propofol 200 MG/20 ML SDV ONE (12:43)
[2019-04-22] MEDS: Sodium Chloride 0.9% 1,000 ML IV SCH ×2 (12:52→13:02)
[2019-04-22 14:10] VITALS: PULSE 72
--- NOTE | 2019-04-22 14:13 | PCM.POSTAN ---
POST ANESTHESIA ASSESSMENT - MENTAL STATUS Mental Status: Alert, Oriented - VITAL SIGNS Vital Signs: 146/68, 86, 12, 98.6, 99% on 2L Last Vital Signs Temp Pulse 72 04/22/19 14:10 Resp 18 04/22/19 14:10 BP Pulse Ox 98 04/22/19 14:10 - RESPIRATORY Respiratory Status: Respiratory Rate WNL, Airway Patent, O2 Saturation Stable - CARDIOVASCULAR CV Status: Pulse Rate WNL, Blood Pressure Stable - GASTROINTESTINAL GI Status: No Symptoms - POST OP HYDRATION Hydration Status: Adequate & Stable
--- NOTE | 2019-04-22 14:15 | PCM48HPAN ---
Post Anesthesia Note - EVALUATION WITHIN 48HRS OF ANESTHETIC Vital Signs in Normal Range: Yes Patient Participated in Evaluation: Yes Respiratory Function Stable: Yes Airway Patent: Yes Cardiovascular Function Stable: Yes Hydration Status Stable: Yes Pain Control Satisfactory: Yes Nausea and Vomiting Control Satisfactory: Yes Mental Status Recovered: Yes Vital Signs: Last Vital Signs 146/86, 99% on 2L NC O2, 86, 98.6, 12, 2/10 Temp Pulse 72 04/22/19 14:10 Resp 18 04/22/19 14:10 BP Pulse Ox 98 04/22/19 14:10
--- NOTE | 2019-04-23 10:57 | CR ---
Left elbow: Two views of the left elbow were obtained. Comparison: Previous left elbow study performed earlier in the same day (11:40 AM). Previous dislocation has been reduced. Radial head fracture is noted. Small bony density is seen off the lateral elbow compatible with small fracture fragment. Soft tissue swelling is noted. Proximal ulna appears intact. Small avulsion fracture is noted off the medial epicondyle. Impression: 1. Radial head fracture with additional small bony density off the lateral elbow. 2. Previous dislocation has been reduced. 3. Small avulsion fracture off the medial epicondyle. Diagnostic code #3
--- NOTE | 2019-04-23 10:57 | CR ---
Left elbow: Three views of the left elbow were obtained. Dislocated left elbow is seen involving both radius and ulna. Bony density is noted off the radial head suspicious for fracture which can be confirmed on post reduction study. Diffuse soft tissue swelling is noted. Impression: 1. Dislocated left elbow with probable fracture within the radial head/neck. Diagnostic code #5
== END 2019-04-22 14:24 | disposition home or self-care (01) ==
LOC: JD.ED 11:19
DX: S53.105A Unspecified dislocation of left ulnohumeral joint, initial encounter (principal); S52.122A Displaced fracture of head of left radius, initial encounter for closed fracture; S50.812A Abrasion of left forearm, initial encounter; I10 Essential (primary) hypertension; E78.00 Pure hypercholesterolemia, unspecified; J45.909 Unspecified asthma, uncomplicated; G47.30 Sleep apnea, unspecified; K21.9 Gastro-esophageal reflux disease without esophagitis; E03.9 Hypothyroidism, unspecified; E66.9 Obesity, unspecified; Z68.42 Body mass index [BMI] 45.0-49.9, adult; Z79.51 Long term (current) use of inhaled steroids; Z79.899 Other long term (current) drug therapy; Z79.890 Hormone replacement therapy; Z86.711 Personal history of pulmonary embolism; Z79.01 Long term (current) use of anticoagulants; Z91.09 Other allergy status, other than to drugs and biological substances; Z88.2 Allergy status to sulfonamides; W01.0XXA Fall on same level from slipping, tripping and stumbling without subsequent striking against object, initial encounter; Y93.02 Activity, running
CPT/HCPCS: 24600; 36415; 70450; 73070; 73080; 80053; 85025; 96360; 99284; J2001; J2704; J7040; 01820; 25565

== ENCOUNTER 2023-05-01 16:14 | Emergency (ER) | payer MEDICARE ==
[2023-05-01 17:44] LABS: CORONAVIRUS COVID-19 NAA NEGATIVE (NEGATIVE); INFLUENZA A NAA NEGATIVE (NEGATIVE)
[2023-05-01] MEDS ORDERED: Fluconazole 100 MG Tab PO ONE (18:55)
[2023-05-01 19:20] VITALS: BP 193/75; PULSE 67
== END 2023-05-01 18:58 | disposition home or self-care (01) ==
LOC: JD.ED 16:14
DX: B37.81 Candidal esophagitis (principal); E03.9 Hypothyroidism, unspecified; E66.9 Obesity, unspecified; E78.00 Pure hypercholesterolemia, unspecified; I10 Essential (primary) hypertension; Z20.822 Contact with and (suspected) exposure to COVID-19; Z79.01 Long term (current) use of anticoagulants; Z79.899 Other long term (current) drug therapy; Z88.2 Allergy status to sulfonamides; Z91.048 Other nonmedicinal substance allergy status; Z68.41 Body mass index [BMI] 40.0-44.9, adult
CPT/HCPCS: 0240U; 87651; 99283; A9270

== ENCOUNTER 2024-10-13 20:14 | Emergency (ER) | payer MEDICARE ==
[2024-10-13] MEDS ORDERED: Sodium Chloride 0.9% 10 ML Syringe FLUSH PRN (21:23)
[2024-10-13 21:26] LABS: BASOPHILS PERCENT AUTO 0.2 % (0.0-1.0); EOSINOPHILS ABSOLUTE AUTO 0.1 K/mm3 (0.0-0.4); EOSINOPHILS PERCENT AUTO 1.7 % (0.0-6.0); HEMATOCRIT 30.7 % (37.0-47.0); HEMOGLOBIN 9.7 gm/dl (12.0-16.0); IMMATURE GRAN ABSOLUTE AUTO 0.02 K/mm3 (0.00-0.05); IMMATURE GRAN PERCENT AUTO 0.4 % (0.0-0.4); LYMPHOCYTES ABSOLUTE AUTO 0.6 K/mm3 (1.0-4.8); MEAN CORPUSCULAR HEMOGLOBIN 31.6 pg (28.0-32.0); MEAN CORPUSCULAR HGB CONC 31.6 g/dl (32.0-36.0); MEAN PLATELET VOLUME 8.7 fl (9.4-12.3); MONOCYTES ABSOLUTE AUTO 0.6 K/mm3 (0.0-0.8); MONOCYTES PERCENT AUTO 12.3 % (0.0-8.0); NEUTROPHILS ABSOLUTE AUTO 3.4 K/mm3 (1.8-7.7); NEUTROPHILS PERCENT AUTO 73.4 % (41.0-71.0); PLATELET COUNT,PLT 172 K/mm3 (150-400); RED BLOOD CELL COUNT 3.07 M/mm3 (4.10-5.30); WHITE BLOOD CELL COUNT,WBC 4.65 K/mm3 (3.9-11.3)
[2024-10-13] MEDS: Sodium Chloride 0.9% 10 ML Syringe FLUSH PRN (21:43)
[2024-10-13] MEDS: Iopamidol 612 MG/ML 100 ML Bottle IVPUSH ONE (21:43)
[2024-10-13 21:44] LABS: INR 1.09; PROTHROMBIN TIME 11.5 SECONDS (9.7-12.0)
[2024-10-13 21:45] LABS: A/G RATIO 0.9 (1-2); ALANINE AMINOTRANSFERASE,ALT 490 U/L (14-59); ALBUMIN 2.9 g/dl (3.4-5.0); ALKALINE PHOSPHATASE 459 U/L (46-116); ANION GAP 8.7 (5-15); ASPARTATE AMNIOTRANSFERASE,AST 144 U/L (15-37); BILIRUBIN TOTAL 5.9 mg/dL (0.2-1.0); BLOOD UREA NITROGEN,BUN 23 mg/dL (7-18); BUN/CREATININE RATIO 15.3 (14-18); CARBON DIOXIDE,CO2 28 mEq/L (21-32); CHLORIDE,CL 95 mEq/L (98-107); ESTIMATED GFR 36 mL/min (>60); LIPASE 137 U/L (16-77); MAGNESIUM 1.5 mg/dL (1.8-2.4); POTASSIUM,K 4.7 mEq/L (3.5-5.1); SODIUM,NA 127 mEq/L (136-145)
[2024-10-13 21:46] LABS: PTT,PARTIAL THROMBOPLSTIN TIME 28.7 SECONDS (21.7-31.4)
[2024-10-13] MEDS: Sodium Chloride 0.9% 1,000 ML IV SCH (22:02)
[2024-10-13 22:19] LABS: OSMOLALITY,SERUM 306 mosm/kg (280-300)
[2024-10-13 22:31] LABS: GLUCOSE RANDOM 473 mg/dL (70-99)
[2024-10-13 22:32] LABS: CREATININE 1.5 mg/dL (0.55-1.02); PROTEIN TOTAL,TP 6.2 g/dl (6.4-8.2)
[2024-10-13] MEDS: Insulin Regular, Human 100 Units/ML 10 ML Vial SUBCUT ONE (23:20)
[2024-10-14 01:01] LABS: APPEARANCE,URINE CLEAR (Clear); BILIRUBIN,URINE 1+ (Negative); COLOR,URINE YELLOW (Yellow); GLUCOSE,URINE 2+ (Negative); KETONES,URINE NEGATIVE (Negative); LEUKOCYTE ESTERASE,URINE NEGATIVE (Negative); NITRITE,URINE NEGATIVE (Negative); OCCULT BLOOD,URINE NEGATIVE (Negative); PROTEIN,URINE TRACE (Negative); UROBILINOGEN,URINE 0.2 (0.2-1.0)
[2024-10-14 01:07] LABS: RBC,URINE NOT SEEN /hpf (0-5)
[2024-10-14 01:08] LABS: BACTERIA,URINE FEW /hpf (FEW); MUCUS,URINE NOT SEEN /hpf (FEW); SQUAMOUS EPITHELIAL CELLS,UR 0-5 /hpf (0-5); WBC,URINE 0-5 /hpf (0-5)
[2024-10-14 02:27] VITALS: BP 159/63; PULSE 60
== END 2024-10-14 02:15 ==
LOC: JD.ED 20:14
DX: K83.1 Obstruction of bile duct (principal); C78.7 Secondary malignant neoplasm of liver and intrahepatic bile duct; E87.1 Hypo-osmolality and hyponatremia; R73.9 Hyperglycemia, unspecified; I10 Essential (primary) hypertension; E78.00 Pure hypercholesterolemia, unspecified; J44.89 Other specified chronic obstructive pulmonary disease; K21.9 Gastro-esophageal reflux disease without esophagitis; E03.9 Hypothyroidism, unspecified; Z90.49 Acquired absence of other specified parts of digestive tract; Z90.710 Acquired absence of both cervix and uterus; Z88.2 Allergy status to sulfonamides; Z91.048 Other nonmedicinal substance allergy status; Z79.51 Long term (current) use of inhaled steroids; Z79.01 Long term (current) use of anticoagulants; Z79.890 Hormone replacement therapy; Z79.899 Other long term (current) drug therapy
CPT/HCPCS: 36415; 70450; 70450-26; 74177; 74177-26; 80053; 81001; 82140; 82800; 82947; 83605; 83690; 83735; 83930; 85025; 85610; 85730; 96360; 96361; 99285-25; J1815-GY; J7030; Q9967

== ENCOUNTER 2024-10-31 15:49 | Inpatient (IN) | payer MEDICARE ==
[2024-10-31] MEDS: Sodium Chloride 0.9% 10 ML Syringe FLUSH ONE (16:57)
[2024-10-31] MEDS: Iopamidol 612 MG/ML 100 ML Bottle IVPUSH ONE (16:57)
[2024-10-31] MEDS: Sodium Chloride 0.9% 1,000 ML IV ONE (16:58)
[2024-10-31] MEDS: Sodium Chloride 0.9% 10 ML Syringe FLUSH PRN (16:59)
[2024-10-31 17:25] LABS: APPEARANCE,URINE CLEAR (Clear); BILIRUBIN,URINE NEGATIVE (Negative); COLOR,URINE YELLOW (Yellow); GLUCOSE,URINE NEGATIVE (Negative); KETONES,URINE NEGATIVE (Negative); LEUKOCYTE ESTERASE,URINE NEGATIVE (Negative); NITRITE,URINE NEGATIVE (Negative); OCCULT BLOOD,URINE NEGATIVE (Negative); PROTEIN,URINE NEGATIVE (Negative); UROBILINOGEN,URINE 0.2 (0.2-1.0)
[2024-10-31 18:01] LABS: HEMATOCRIT 28.9 % (37.0-47.0); HEMOGLOBIN 9.1 gm/dl (12.0-16.0); MEAN CORPUSCULAR HEMOGLOBIN 31.9 pg (28.0-32.0); MEAN CORPUSCULAR HGB CONC 31.5 g/dl (32.0-36.0); MEAN CORPUSCULAR VOLUME 101.4 fl (83.0-99.0); MEAN PLATELET VOLUME 8.9 fl (9.4-12.3); PLATELET COUNT,PLT 219 K/mm3 (150-400); RED BLOOD CELL COUNT 2.85 M/mm3 (4.10-5.30); WHITE BLOOD CELL COUNT,WBC 5.03 K/mm3 (3.9-11.3)
[2024-10-31 18:15] LABS: INR 1.22; PROTHROMBIN TIME 12.8 SECONDS (9.7-12.0)
[2024-10-31 18:21] LABS: A/G RATIO 0.6 (1-2); ALBUMIN 2.2 g/dl (3.4-5.0); ANION GAP 11.5 (5-15); BILIRUBIN TOTAL 0.4 mg/dL (0.2-1.0); BUN/CREATININE RATIO 33.1 (14-18); CREATININE 1.3 mg/dL (0.55-1.02); EST CRCL DRUG DOSING (CG) 33.93 mL/min; POTASSIUM,K 4.5 mEq/L (3.5-5.1)
[2024-10-31 19:18] LABS: BARBITURATE SCREEN,URINE NEGATIVE (CUTOFF=200); BENZODIAZEPINES SCREEN,URINE NEGATIVE (CUTOFF=150); BUPRENORPHINE SCREEN,URINE NEGATIVE (CUTOFF=10); METHADONE SCREEN, URINE NEGATIVE (CUTOFF=200); METHAMPHETAMINES SCREEN, URINE NEGATIVE (CUTOFF=500); OXYCODONE SCREEN,URINE NEGATIVE (CUT0FF=100); THC SCREEN,URINE 20 NG/ML NEGATIVE (CUTOFF=50)
[2024-10-31 19:36] LABS: AMPHETAMINES SCREEN, URINE NEGATIVE (CUTOFF=500)
[2024-10-31 19:45] LABS: BAND PERCENT MAN 0 % (0-10); BASOPHILS PERCENT MAN 1 (0.1-1.2); EOSINOPHILS PERCENT MAN 0 % (0.7-5.8); LYMPHOCYTES % ATYPICAL MANUAL 0 %; LYMPHOCYTES PERCENT MAN 15 % (20-40); MONOCYTES PERCENT MAN 10 % (2-10)
[2024-10-31 19:47] LABS: PLATELET COUNT ESTIMATE ADEQUATE
[2024-10-31 19:55] LABS: LACTIC ACID 0.5 mmol/L (0.4-2.0)
[2024-10-31] MEDS ORDERED: 50% Dextrose in Water 50 ML Syringe IVPUSH PRN (20:04)
[2024-10-31] MEDS ORDERED: Sodium Chloride 0.9% 1,000 ML IV SCH (20:15)
[2024-10-31 20:16] LABS: BASE EXCESS ARTERIAL 2.5 (-2-2.0); BICARBONATE,ARTERIAL 28.7 meq/L (22.0-26.0); O2 SATURATION ARTERIAL 98.7 % (96.0-97.0)
[2024-10-31 20:39] LABS: TSH 1.44 uIU/mL (0.358-3.74)
[2024-10-31] MEDS: Acetaminophen/HYDROcodone 325-5 MG Tab PO ONE (21:02)
[2024-10-31] MEDS: Apixaban 5 MG Tab PO SCH (21:02)
[2024-10-31] MEDS: Gabapentin 300 MG Cap PO SCH (21:03)
[2024-10-31] MEDS: Insulin Lispro 100 Unit/ML 3 ML KwikPen SUBCUT SCH (21:11)
[2024-10-31 23:40] VITALS: BP 115/42; PULSE 52
[2024-11-01 04:42] LABS: BASOPHILS PERCENT AUTO 0.4 % (0.0-1.0); EOSINOPHILS ABSOLUTE AUTO 0.1 K/mm3 (0.0-0.4); EOSINOPHILS PERCENT AUTO 2.2 % (0.0-6.0); HEMATOCRIT 29.5 % (37.0-47.0); HEMOGLOBIN 9.2 gm/dl (12.0-16.0); IMMATURE GRAN ABSOLUTE AUTO 0.01 K/mm3 (0.00-0.05); IMMATURE GRAN PERCENT AUTO 0.2 % (0.0-0.4); LYMPHOCYTES ABSOLUTE AUTO 0.8 K/mm3 (1.0-4.8); MEAN CORPUSCULAR HEMOGLOBIN 31.1 pg (28.0-32.0); MEAN CORPUSCULAR HGB CONC 31.2 g/dl (32.0-36.0); MEAN CORPUSCULAR VOLUME 99.7 fl (83.0-99.0); MEAN PLATELET VOLUME 8.8 fl (9.4-12.3); MONOCYTES ABSOLUTE AUTO 0.5 K/mm3 (0.0-0.8); MONOCYTES PERCENT AUTO 10.6 % (0.0-8.0); NEUTROPHILS ABSOLUTE AUTO 3.5 K/mm3 (1.8-7.7); NEUTROPHILS PERCENT AUTO 70.6 % (41.0-71.0); PLATELET COUNT,PLT 210 K/mm3 (150-400); RED BLOOD CELL COUNT 2.96 M/mm3 (4.10-5.30); WHITE BLOOD CELL COUNT,WBC 4.89 K/mm3 (3.9-11.3)
[2024-11-01 05:10] LABS: A/G RATIO 0.6 (1-2); ALBUMIN 2.2 g/dl (3.4-5.0); ANION GAP 6.7 (5-15); BILIRUBIN TOTAL 0.4 mg/dL (0.2-1.0); BUN/CREATININE RATIO 44.4 (14-18); C-REACTIVE PROTEIN 7.83 mg/dL (<0.30); CALCIUM 9.6 mg/dL (8.5-10.1); CREATININE 0.9 mg/dL (0.55-1.02); EST CRCL DRUG DOSING (CG) 39.5 mL/min; POTASSIUM,K 4.7 mEq/L (3.5-5.1); PROTEIN TOTAL,TP 6.1 g/dl (6.4-8.2)
[2024-11-01] MEDS ORDERED: Apixaban 5 MG Tab ONE (08:00)
[2024-11-01] MEDS ORDERED: Gabapentin 100 MG Cap PO SCH (08:00)
[2024-11-01] MEDS ORDERED: Famotidine 20 MG Tab ONE (09:00)
[2024-11-01] MEDS ORDERED: Diclofenac Sodium 1% Gel 100 GM Tube ONE (09:00)
[2024-11-01] MEDS ORDERED: DULoxetine 30 MG Cap ONE (09:00)
[2024-11-01] MEDS ORDERED: oxyCODONE 5 MG Tab ONE ×2 (09:00)
[2024-11-01] MEDS ORDERED: Allopurinol 100 MG Tab ONE ×2 (09:00)
[2024-11-01] MEDS ORDERED: Pantoprazole 40 MG Tab.CR ONE (09:00)
[2024-11-01] MEDS ORDERED: Losartan 50 MG Tab ONE (09:00)
[2024-11-01] MEDS ORDERED: Levothyroxine 50 MCG Tab ONE (09:00)
[2024-11-01] MEDS ORDERED: Morphine 2 MG/ML SYRINGE ONE ×6 (09:00)
[2024-11-01] MEDS ORDERED: amLODIPine 5 MG Tab ONE (09:00)
[2024-11-01] MEDS ORDERED: Fluticasone NASAL Spray 16 GM Bottle ONE (09:00)
[2024-11-01] MEDS ORDERED: Montelukast 10 MG Tab PO SCH (09:00)
[2024-11-01] MEDS ORDERED: Carvedilol 12.5 MG Tab ONE ×2 (09:00)
[2024-11-01 16:19] LABS: BASE EXCESS ARTERIAL 1.7 (-2-2.0); BICARBONATE,ARTERIAL 27.2 meq/L (22.0-26.0); O2 SATURATION ARTERIAL 99.3 % (96.0-97.0)
[2024-11-01 17:46] LABS: FOLIC ACID 33.8 ng/mL (8.6-58.9)
[2024-11-01 18:59] LABS: TSH 1.525 uIU/mL (0.358-3.74)
[2024-11-02 04:37] LABS: BASOPHILS PERCENT AUTO 0.3 % (0.0-1.0); EOSINOPHILS ABSOLUTE AUTO 0.1 K/mm3 (0.0-0.4); EOSINOPHILS PERCENT AUTO 1.1 % (0.0-6.0); HEMATOCRIT 30.5 % (37.0-47.0); HEMOGLOBIN 9.6 gm/dl (12.0-16.0); IMMATURE GRAN ABSOLUTE AUTO 0.02 K/mm3 (0.00-0.05); IMMATURE GRAN PERCENT AUTO 0.3 % (0.0-0.4); LYMPHOCYTES ABSOLUTE AUTO 0.7 K/mm3 (1.0-4.8); LYMPHOCYTES PERCENT AUTO 11.9 % (24.0-44.0); MEAN CORPUSCULAR HEMOGLOBIN 31.1 pg (28.0-32.0); MEAN CORPUSCULAR HGB CONC 31.5 g/dl (32.0-36.0); MEAN CORPUSCULAR VOLUME 98.7 fl (83.0-99.0); MEAN PLATELET VOLUME 8.6 fl (9.4-12.3); MONOCYTES ABSOLUTE AUTO 0.7 K/mm3 (0.0-0.8); MONOCYTES PERCENT AUTO 10.6 % (0.0-8.0); NEUTROPHILS ABSOLUTE AUTO 4.6 K/mm3 (1.8-7.7); NEUTROPHILS PERCENT AUTO 75.8 % (41.0-71.0); PLATELET COUNT,PLT 210 K/mm3 (150-400); RED BLOOD CELL COUNT 3.09 M/mm3 (4.10-5.30); WHITE BLOOD CELL COUNT,WBC 6.11 K/mm3 (3.9-11.3)
[2024-11-02 05:30] LABS: A/G RATIO 0.6 (1-2); ALBUMIN 2.3 g/dl (3.4-5.0); ANION GAP 12.5 (5-15); BILIRUBIN TOTAL 0.5 mg/dL (0.2-1.0); BUN/CREATININE RATIO 26.3 (14-18); C-REACTIVE PROTEIN 6.26 mg/dL (<0.30); CALCIUM 9.6 mg/dL (8.5-10.1); CREATININE 0.8 mg/dL (0.55-1.02); EST CRCL DRUG DOSING (CG) 44.44 mL/min; MAGNESIUM 1.3 mg/dL (1.8-2.4); POTASSIUM,K 4.5 mEq/L (3.5-5.1)
[2024-11-02] MEDS ORDERED: Magnesium Sulf/Wat 4 GM/50 mL 50 ML IV ONE (08:00)
[2024-11-02] MEDS ORDERED: Insulin Glargine,Human Rec. Analog 100 Units/ML 3 ML Pen ONE (09:00)
== END 2024-11-03 10:34 | disposition hospice, home (50) | DRG 435 ==
LOC: JD.ED 15:49 → JD.MS 18:39 → JD.ED 22:36
PROVIDERS: ADMIT Family Medicine; ATTEND Family Medicine
DX: C25.9 Malignant neoplasm of pancreas, unspecified (principal); G92.8 Other toxic encephalopathy; K85.80 Other acute pancreatitis without necrosis or infection; C78.7 Secondary malignant neoplasm of liver and intrahepatic bile duct; J96.11 Chronic respiratory failure with hypoxia; Z66 Do not resuscitate; K21.9 Gastro-esophageal reflux disease without esophagitis; J44.89 Other specified chronic obstructive pulmonary disease; G47.30 Sleep apnea, unspecified; F32.A Depression, unspecified; E03.9 Hypothyroidism, unspecified; E78.00 Pure hypercholesterolemia, unspecified; M19.90 Unspecified osteoarthritis, unspecified site; Z96.659 Presence of unspecified artificial knee joint; J45.20 Mild intermittent asthma, uncomplicated; T37.4X5A Adverse effect of anthelminthics, initial encounter; E66.9 Obesity, unspecified; I10 Essential (primary) hypertension; Z99.81 Dependence on supplemental oxygen; Z88.2 Allergy status to sulfonamides; Z88.8 Allergy status to other drugs, medicaments and biological substances; Z79.899 Other long term (current) drug therapy; Z79.890 Hormone replacement therapy; Z90.49 Acquired absence of other specified parts of digestive tract; Z90.710 Acquired absence of both cervix and uterus; Z68.32 Body mass index [BMI] 32.0-32.9, adult; Z86.711 Personal history of pulmonary embolism; Z91.048 Other nonmedicinal substance allergy status; Z79.01 Long term (current) use of anticoagulants; Z79.891 Long term (current) use of opiate analgesic; Z79.4 Long term (current) use of insulin; Z79.1 Long term (current) use of non-steroidal anti-inflammatories (NSAID); Z79.02 Long term (current) use of antithrombotics/antiplatelets; Z87.440 Personal history of urinary (tract) infections; Z87.19 Personal history of other diseases of the digestive system; Z90.89 Acquired absence of other organs; Z98.890 Other specified postprocedural states; Z51.5 Encounter for palliative care
CPT/HCPCS: 36415; 36600; 70450; 71045; 74177; 80053; 80306; 81003; 82140; 82803; 82947; 83605; 83690; 84443; 84484; 85007; 85027; 85610; 86140; 87040 ×2; 93005; 96360; 99285; A9270 ×3; C1758; J1815; J7030; Q9967; 51798; 82306; 82607; 82746; 83735; 85025; 93010; 94660; 94761; 97110-GP; 97112-GP; 97161-GP; 97530-GP; 99223; 99233; 99239; J2270; J3475

== ENCOUNTER 2024-10-31 18:39 | Inpatient (IN) | payer MEDICARE ==
[2024-11-01] MEDS: Sodium Chloride 0.9% 1,000 ML IV SCH (00:02)
[2024-11-01] MEDS ORDERED: 50% Dextrose in Water 50 ML Syringe IVPUSH PRN (07:35)
[2024-11-01] MEDS: Insulin Lispro Protamine/Lispro 75-25 100 Units/ML 10 ML Vial SUBCUT SCH (07:43)
[2024-11-01] MEDS: Gabapentin 100 MG Cap PO SCH (08:29)
[2024-11-01] MEDS: Apixaban 5 MG Tab PO SCH ×2 (08:30→21:26)
[2024-11-01] MEDS: Insulin Lispro 100 Unit/ML 3 ML KwikPen SUBCUT SCH (08:33)
[2024-11-01] MEDS ORDERED: FORMOTEROL INH PRN (09:12)
[2024-11-01] MEDS ORDERED: BUDESONIDE INH PRN (09:12)
[2024-11-01] MEDS ORDERED: [UNRECOGNIZED DRUG - OTHER] INH PRN (09:12)
[2024-11-01] MEDS ORDERED: Albuterol/Ipratropium 3.0-0.5 MG/3 ML Neb Soln NEB PRN (09:16)
[2024-11-01] MEDS ORDERED: Albuterol 0.083% 2.5 MG/3 ML Neb Soln NEB PRN (09:16)
[2024-11-01] MEDS ORDERED: Sennosides/Docusate Sodium 50-8.6 MG Tab PO PRN (09:16)
[2024-11-01] MEDS ORDERED: Ondansetron 4 MG/2 ML SDV IV PRN (09:16)
[2024-11-01] MEDS ORDERED: Acetaminophen/HYDROcodone 325-5 MG Tab PO PRN (11:47)
[2024-11-01] MEDS: Lidocaine 4% Patch TOP SCH (14:05)
[2024-11-01] MEDS: Acetaminophen 325 MG Tab PO PRN (15:48)
[2024-11-01] MEDS: DULoxetine 30 MG Cap PO SCH (17:33)
[2024-11-01] MEDS ORDERED: Gabapentin 300 MG Cap PO SCH (21:00)
[2024-11-01] MEDS ORDERED: Gabapentin 100 MG Cap PO SCH (21:00)
[2024-11-01] MEDS: Carvedilol 12.5 MG Tab PO SCH (21:15)
[2024-11-01] MEDS: Fluticasone NASAL Spray 16 GM Bottle NASBOTH SCH ×2 (21:25→23:30)
[2024-11-01] MEDS: Montelukast 10 MG Tab PO SCH (21:26)
[2024-11-01] MEDS: Famotidine 20 MG Tab PO SCH (21:26)
[2024-11-02] MEDS: Diclofenac Sodium 1% Gel 100 GM Tube TOP PRN (02:22)
[2024-11-02] MEDS: Levothyroxine 50 MCG Tab PO SCH (05:37)
[2024-11-02] MEDS: oxyCODONE 5 MG Tab PO PRN (06:18)
[2024-11-02] MEDS: Insulin Glargine,Human Rec. Analog 100 Units/ML 3 ML Pen SUBCUT SCH (08:01)
[2024-11-02] MEDS: Losartan 50 MG Tab PO SCH (08:11)
[2024-11-02] MEDS: Loratadine 10 MG Tab PO SCH (08:12)
[2024-11-02] MEDS: Allopurinol 100 MG Tab PO SCH (08:13)
[2024-11-02] MEDS: Lidocaine 4% Patch TOP SCH (08:13)
[2024-11-02] MEDS: amLODIPine 5 MG Tab PO SCH (08:13)
[2024-11-02] MEDS: Pantoprazole 40 MG Tab.CR PO SCH (08:13)
[2024-11-02] MEDS: Magnesium Sulf/Wat 4 GM/50 mL 4 GM in Premix Bag 1 BAG IV ONE (08:14)
[2024-11-02] MEDS ORDERED: Lidocaine 4% Patch TOP SCH ×2 (09:00→13:00)
[2024-11-02] MEDS: Morphine 2 MG/ML SYRINGE IVPUSH PRN (14:23)
[2024-11-02] MEDS: Sodium Chloride 0.9% 1,000 ML IV SCH (14:56)
[2024-11-02] MEDS ORDERED: LORazepam 2 MG/ML SDV IVPUSH PRN (19:36)
[2024-11-03 08:24] VITALS: BP 166/77; PULSE 76
== END 2024-11-03 10:34 | disposition hospice, home (50) | DRG 91 ==
LOC: JD.MS 18:39
PROVIDERS: ADMIT Family Medicine; ATTEND Family Medicine
PROC: 4A033R1 Measurement of Arterial Saturation, Peripheral, Percutaneous Approach (ICD-10-PCS; principal; 2024-10-31)
PROC: 5A09357 Assistance with Respiratory Ventilation, Less than 24 Consecutive Hours, Continuous Positive Airway Pressure (ICD-10-PCS; principal; 2024-10-31)
DX: G92.8 Other toxic encephalopathy (principal); K85.80 Other acute pancreatitis without necrosis or infection; C25.9 Malignant neoplasm of pancreas, unspecified; J96.11 Chronic respiratory failure with hypoxia; C78.7 Secondary malignant neoplasm of liver and intrahepatic bile duct; Z68.41 Body mass index [BMI] 40.0-44.9, adult; Z66 Do not resuscitate; G47.30 Sleep apnea, unspecified; E78.5 Hyperlipidemia, unspecified; I10 Essential (primary) hypertension; F32.A Depression, unspecified; E03.9 Hypothyroidism, unspecified; J44.9 Chronic obstructive pulmonary disease, unspecified; H54.7 Unspecified visual loss; E78.00 Pure hypercholesterolemia, unspecified; K21.9 Gastro-esophageal reflux disease without esophagitis; M19.90 Unspecified osteoarthritis, unspecified site; E11.9 Type 2 diabetes mellitus without complications; E66.9 Obesity, unspecified; E61.1 Iron deficiency; J45.20 Mild intermittent asthma, uncomplicated; J45.909 Unspecified asthma, uncomplicated; Z98.890 Other specified postprocedural states; Z88.8 Allergy status to other drugs, medicaments and biological substances; Z88.2 Allergy status to sulfonamides; Z79.899 Other long term (current) drug therapy; Z96.659 Presence of unspecified artificial knee joint; Z90.710 Acquired absence of both cervix and uterus; Z90.49 Acquired absence of other specified parts of digestive tract; Z86.711 Personal history of pulmonary embolism; Z79.01 Long term (current) use of anticoagulants; Z99.81 Dependence on supplemental oxygen; Z79.4 Long term (current) use of insulin
CPT/HCPCS: 36415; 36600; 51798; 80053; 82306; 82607; 82746; 82803; 82947; 83735; 84443; 85025; 86140; 94660; 94761; 97110-GP; 97112-GP; 97161-GP; 97530-GP; 99223; 99233; 99239; A9270-GY; J1815-GY; J2270; J3475; J7030